=== PATIENT | female | born 1995 | race African-American/Black ===

== ENCOUNTER 2020-01-19 13:55 | Emergency (ER) | payer MEDICAID ==
[~2020-01-19] VITALS: Ht 177.8 cm; Wt 114.0 kg
[~2020-01-19 13:55] MED LIST: DOCO200C3; PREN1COM10 PO
--- NOTE | 2020-01-19 15:22 | NUR ---
crime scene technician: pt ambulatory to ED room 19 from lobby at this time.
--- NOTE | 2020-01-19 16:09 | NUR ---
THIS IS A 24 YO F W/ C/O INTERMITTENT EPIGASTRIC PAIN THAT STARTED SATURDAY AND VB THAT STARTED TODAY. PT REPORTS PASSING CLOTS. PT REPORTS SHE HAS A POSITIVE TEST THAT SHE TOOK SATURDAY. LMP 12/17/19. [id number]-A0. PT IS RESTING ON Om[facility] W/ CALL LIGHT IN REACH, CONNECTED TO MONITORING. RESP EVEN AND UNLABORED. NADN. AWAITING ED EVAL.
[2020-01-19] MEDS ORDERED: SODIUM CHLORIDE 0.9% 1,000ML IVBOLUS ONE (16:30)
[2020-01-19] MEDS ORDERED: ONDANSETRON 2MG/ML, 2ML IVPush ONE (16:30)
[2020-01-19] MEDS ORDERED: SODIUM CHLORIDE FLUSH 10ML SYR IVF ONE (16:30)
[2020-01-19 16:48] LABS: BASOPHILS # (AUTO) 0.06 x10^3/uL (0-0.1); BASOPHILS % (AUTO) 1 % (0-1); EOSINOPHILS # (AUTO) 0.48 x10^3/uL (0-0.4); EOSINOPHILS % (AUTO) 5 % (1-7); LYMPHOCYTES # (AUTO) 2.73 x10^3/uL (1-3.4); LYMPHOCYTES % (AUTO) 30 % (22-44); MD NO; MEAN CORPUSCULAR HEMOGLOBIN 31.7 pg (27.0-34.8); MEAN CORPUSCULAR HGB CONC 33.4 g/dL (32.4-35.8); MEAN CORPUSCULAR VOLUME 94.8 fL (80-100); MEAN PLATELET VOLUME 7.4 fL (7.4-10.4); MONOCYTES # (AUTO) 0.91 x10^3/uL (0.2-0.8); MONOCYTES % (AUTO) 10 % (2-9); NEUTROPHILS # (AUTO) 5.03 x10^3/uL (1.8-6.8); NEUTROPHILS % (AUTO) 55 % (42-75); PLATELET COUNT 308 x10^3/uL (130-400); RED CELL DISTRIBUTION WIDTH 12.6 % (9.6-15.2)
[2020-01-19 16:59] LABS: ALANINE AMINOTRANSFERASE 36 U/L (12-78); ALBUMIN 3.1 g/dL (3.4-5.0); ANION GAP 6 mmol/L (5-15); CALCIUM 8.6 mg/dL (8.5-10.1); CHLORIDE 108 mmol/L (98-107)
[2020-01-19 17:04] LABS: ALKALINE PHOSPHATASE 88 U/L (45-117); BILIRUBIN,TOTAL 0.3 mg/dL (0.2-1.0); CREATININE 0.79 mg/dL (0.55-1.02); TOTAL PROTEIN 7.1 g/dL (6.4-8.2)
--- NOTE | 2020-01-19 17:18 | NUR ---
PT IN RAD.
--- NOTE | 2020-01-19 17:39 | NUR ---
TASK RN: PT CURRENTLY IN US.
[2020-01-19] MEDS ORDERED: MORPHINE SULFATE 4 MG/ML, 1ML ONE ×2 (17:52→19:58)
[2020-01-19] MEDS ORDERED: ONDANSETRON 2MG/ML, 2ML ONE (17:52)
[2020-01-19] MEDS: MORPHINE SULFATE 4 MG/ML, 1ML IVPush PRN ×2 (17:57→19:59)
[2020-01-19 17:58] VITALS: BP 169/78
--- NOTE | 2020-01-19 17:58 | NUR ---
TASK RN: IV STARTED, FLUIDS RUNNING, PT MEDICATED FOR 09/06 PAIN. VSS. FAMILY AT BEDSIDE CALL LIGHT WITHIN REACH
--- NOTE | 2020-01-19 18:22 | NUR ---
ALL TESTS RESULTED. PT IS UP FOR RECHECK AT THIS TIME.
[2020-01-19] MEDS ORDERED: MAALOX/HYOSCYAMINE/LIDOCAINE 45 ML BTL PO ONE (19:00)
[2020-01-19] MEDS ORDERED: DIPHENHYDRAMINE 50 MG/ML, 1ML IVPush ONE (19:00)
[2020-01-19] MEDS ORDERED: FAMOTIDINE 20 MG/2 ML IVPush ONE (19:00)
[2020-01-19] MEDS ORDERED: METOCLOPRAMIDE 5 MG/ML, 2ML IVPush ONE (19:00)
[2020-01-19] MEDS ORDERED: FAMOTIDINE 20 MG/2 ML ONE (19:40)
[2020-01-19] MEDS ORDERED: METOCLOPRAMIDE 5 MG/ML, 2ML ONE (19:40)
[2020-01-19] MEDS ORDERED: MAALOX/HYOSCYAMINE/LIDOCAINE 45 ML BTL ONE (19:40)
[2020-01-19] MEDS ORDERED: DIPHENHYDRAMINE 50 MG/ML, 1ML ONE (19:57)
== END 2020-01-19 20:51 | disposition home or self-care (01) ==
LOC: ED 20:41
DX: O20.0 Threatened abortion (principal); O21.9 Vomiting of pregnancy, unspecified; R10.84 Generalized abdominal pain; R10.13 Epigastric pain
CPT/HCPCS: 36415; 76700; 76801; 80053; 83690; 84702; 85025; 96361; 96374; 96375; 96376; 99285; J1200; J2270; J2405; J2765; J3490; J7030

== ENCOUNTER 2020-07-24 15:12 | Emergency (ER) | payer MEDICAID ==
[~2020-07-24] VITALS: Ht 175.3 cm; Wt 106.4 kg
--- NOTE | 2020-07-24 15:28 | NUR ---
PATIENT WALKED BACK FROM TRIAGE WITH CHIEF C/O EMESIS. PATIENT STATES SHE STARTED THROWING UP SOME BLOOD TODAY, AND LOST VISION IN HER LEFT EYE, WAS DIZZY, AND FELT LIKE SHE WAS ABOUT TO PASS OUT. PATIENT REPORTS HER VISION HAS COME BACK SOMEWHAT AND SHE IS GETTING A HERNANDEZ. PATIENT HAS CRAMPING ON THE RIGHT SIDE OF HER ABDOMEN. DENIES VAGINAL BLEEDING. PATIENT IS 9 WEEKS . ACCOMPANIED BY SIGNIFICANT OTHER, CONNECTED TO VITALS MACHINE. PROVIDER AT BEDSIDE FOR EVALUATION.
[2020-07-24] MEDS ORDERED: ONDANSETRON 2MG/ML, 2ML ONE (15:57)
[2020-07-24] MEDS ORDERED: SODIUM CHLORIDE FLUSH 10ML SYR IVF ONE (16:00)
[2020-07-24] MEDS ORDERED: SODIUM CHLORIDE 0.9% 1,000ML IVBOLUS ONE (16:00)
[2020-07-24] MEDS ORDERED: ONDANSETRON 2MG/ML, 2ML IVPush ONE (16:00)
--- NOTE | 2020-07-24 16:09 | NUR ---
20 GAUGE IV STARTED LEFT AC, ZOFRAN GIVEN, NS BOLUS STARTED, CONNECTED TO ELECTROCARDIOGRAPH TECHNICIAN, CALL LIGHT WITHIN REACH.
--- NOTE | 2020-07-24 16:22 | NUR ---
URINE COLLECTED AND SENT TO LAB.
--- NOTE | 2020-07-24 16:26 | NUR ---
PATIENT TO ULTRASOUND.
[2020-07-24 16:28] LABS: ALBUMIN 3.5 g/dL (3.4-5.0); ANION GAP 7 mmol/L (5-15); CALCIUM 9.1 mg/dL (8.5-10.1); CHLORIDE 105 mmol/L (98-107)
[2020-07-24 16:37] LABS: MICROSCOPIC AUTO
[2020-07-24 16:40] LABS: BASOPHILS # (AUTO) 0.05 x10^3/uL (0-0.1); BASOPHILS % (AUTO) 0 % (0-1); EOSINOPHILS # (AUTO) 0.24 x10^3/uL (0-0.4); EOSINOPHILS % (AUTO) 2 % (1-7); LYMPHOCYTES # (AUTO) 2.16 x10^3/uL (1-3.4); LYMPHOCYTES % (AUTO) 18 % (22-44); MD NO; MEAN CORPUSCULAR HEMOGLOBIN 31.9 pg (27.0-34.8); MEAN CORPUSCULAR HGB CONC 33.7 g/dL (32.4-35.8); MEAN PLATELET VOLUME 8.4 fL (7.4-10.4); MONOCYTES # (AUTO) 0.82 x10^3/uL (0.2-0.8); MONOCYTES % (AUTO) 7 % (2-9); NEUTROPHILS # (AUTO) 8.76 x10^3/uL (1.8-6.8); NEUTROPHILS % (AUTO) 73 % (42-75); PLATELET COUNT 343 x10^3/uL (130-400); RED BLOOD COUNT 4.54 x10^6/uL (3.82-5.3); RED CELL DISTRIBUTION WIDTH 12.2 % (9.6-15.2)
[2020-07-24 16:47] LABS: ALANINE AMINOTRANSFERASE 23 U/L (12-78); ALKALINE PHOSPHATASE 81 U/L (45-117); BILIRUBIN,TOTAL 0.9 mg/dL (0.2-1.0); TOTAL PROTEIN 8.1 g/dL (6.4-8.2)
--- NOTE | 2020-07-24 17:07 | NUR ---
Armond frazier in [facility] - 07/24/20 at 1708 by [email or web address] PATIENT RESTING IN [facility], CONNECTED TO AUTO CLAIMS ADJUSTER. PATIENT STATES SHE IS STILL FEELING PRETTY NAUSEATED. PROVIDER NOTIFIED.
--- NOTE | 2020-07-24 17:08 | NUR ---
PATIENT RESTING IN GURNEY, CONNECTED TO MAT GAUGER. PATIENT STATES SHE IS STILL FEELING NAUSEATED. PROVIDER NOTIFIED.
[2020-07-24] MEDS ORDERED: PROMETHAZINE 25 MG/ML, 1ML ONE (17:21)
--- NOTE | 2020-07-24 17:25 | NUR ---
MEDICATED FOR NAUSEA
[2020-07-24] MEDS ORDERED: PROMETHAZINE 25 MG/ML, 1ML IM ONE (17:30)
--- NOTE | 2020-07-24 18:10 | NUR ---
ER PROVIDER AT BEDSIDE TO DISCUSS POC.
[2020-07-24] MEDS ORDERED: CEFDINIR 300 MG CAPSULE ONE (18:19)
[2020-07-24 18:22] VITALS: BP 149/98
--- NOTE | 2020-07-24 18:23 | NUR ---
DISCHARGE INSTRUCTIONS REVIEWED
[2020-07-24] MEDS ORDERED: CEFDINIR 300 MG CAPSULE PO ONE (18:30)
--- NOTE | 2020-07-24 18:30 | NUR ---
Patient and significant other given discharge instructions and prescription and they have confirmed that they understand the instructions, all questions answered. All patient belongings gathered by patient and significant other. Patient ambulatory with steady gait to discharge desk.
== END 2020-07-24 18:31 | disposition home or self-care (01) ==
LOC: ED 16:51
DX: O23.41 Unspecified infection of urinary tract in pregnancy, first trimester (principal); R11.2 Nausea with vomiting, unspecified; M54.9 Dorsalgia, unspecified; Z3A.09 9 weeks gestation of pregnancy
CPT/HCPCS: 36415; 76801; 80053; 81001; 84702; 85025; 87086; 93005; 96361; 96372; 96374; 99285; J2405; J2550; J7030

== ENCOUNTER 2020-07-25 10:24 | Emergency (ER) | payer MEDICAID ==
[~2020-07-25] VITALS: Ht 175.3 cm; Wt 106.7 kg
--- NOTE | 2020-07-25 10:44 | NUR ---
DX WITH UTI YESTERDAY. DID NOT FILL ABX YESTERDAY AFTER D/C NOTICED VAGINAL BLEEDING/ABD CRAMPING WELL HEADACHE THIS AM VSS UP TO RESTROOM TO VOID
[2020-07-25] MEDS ORDERED: ONDANSETRON 2MG/ML, 2ML IVPush ONE (11:00)
[2020-07-25] MEDS ORDERED: ONDANSETRON 2MG/ML, 2ML ONE (11:13)
[2020-07-25 11:29] LABS: BASOPHILS # (AUTO) 0.03 x10^3/uL (0-0.1); BASOPHILS % (AUTO) 0 % (0-1); EOSINOPHILS # (AUTO) 0.27 x10^3/uL (0-0.4); EOSINOPHILS % (AUTO) 2 % (1-7); LYMPHOCYTES # (AUTO) 2.43 x10^3/uL (1-3.4); LYMPHOCYTES % (AUTO) 21 % (22-44); MD NO; MEAN CORPUSCULAR HEMOGLOBIN 31.5 pg (27.0-34.8); MEAN CORPUSCULAR HGB CONC 33.2 g/dL (32.4-35.8); MONOCYTES # (AUTO) 0.77 x10^3/uL (0.2-0.8); MONOCYTES % (AUTO) 7 % (2-9); NEUTROPHILS # (AUTO) 8.05 x10^3/uL (1.8-6.8); NEUTROPHILS % (AUTO) 70 % (42-75); PLATELET COUNT 326 x10^3/uL (130-400); RED BLOOD COUNT 4.53 x10^6/uL (3.82-5.3); RED CELL DISTRIBUTION WIDTH 12.2 % (9.6-15.2)
--- NOTE | 2020-07-25 11:58 | NUR ---
RETURNED FROM MRI. NAUSEA TOTALLY RESOLVED NOW WITH HEADACHE AND ASKING FOR WATER- TO NOTIFY PROVIDER
[2020-07-25 12:09] VITALS: BP 142/81
[2020-07-25] MEDS ORDERED: ACETAMINOPHEN 500 MG TABLET PO ONE (12:30)
[2020-07-25] MEDS ORDERED: ACETAMINOPHEN 500 MG TABLET ONE ×2 (12:38→12:42)
--- NOTE | 2020-07-25 12:59 | NUR ---
Discharged home after thorough review of plan ans well as sxs to watch for requiring return to care
== END 2020-07-25 13:00 | disposition home or self-care (01) ==
LOC: ED 11:07
DX: O23.11 Infections of bladder in pregnancy, first trimester (principal); O46.91 Antepartum hemorrhage, unspecified, first trimester; Z3A.09 9 weeks gestation of pregnancy
CPT/HCPCS: 36415; 74181; 85025; 96374; 99284; J2405

== ENCOUNTER 2020-08-12 22:35 | Emergency (ER) | payer MEDICAID ==
[~2020-08-12] VITALS: Ht 177.8 cm; Wt 105.2 kg
[2020-08-12] MEDS ORDERED: [UNRECOGNIZED DRUG - OTHER] PO (22:52)
[2020-08-12] MEDS ORDERED: TRIM300C20 PO (22:52)
[2020-08-12] MEDS ORDERED: [UNRECOGNIZED DRUG - OTHER] RC (22:53)
[2020-08-12] MEDS ORDERED: SODIUM CHLORIDE 0.9% 1,000ML IVBOLUS ONE (23:00)
[2020-08-12] MEDS ORDERED: ONDANSETRON 2MG/ML, 2ML IVPush ONE (23:00)
[2020-08-12] MEDS ORDERED: SODIUM CHLORIDE FLUSH 10ML SYR IVF ONE (23:00)
--- NOTE | 2020-08-12 23:02 | NUR ---
PT CAME INTO ED TONIGHT DUE TO N/V SINCE SART OF , PT 12 WEEKS ALONG, AT BS, PT G4,P2,A1. PT STATES NO OTHER PREGNANCIES HAVE MADE HER SICK LIKE THIS. STATES ZOFRAN AND NO OTHER NAUSEA MEDS HAVE HELPED. PT REPORTS STRUGGLING TO HOLD DOWN FLUIDS AND VOMITS IMMEDIATELY AFTER EATING. PT REPORTS URINE SMELLING ABNORMAL RECENTLY, DENIES PAIN WITH URINATION. ANOx4, NOT CURRENTLY VOMITTING, HELEN NEURO INTACT BUT STATES SHES SLIGHTLY LIGHT HEADED FROM NOT KEEPING DOWN FLUIDS. PT PLACED ON SPO2/BP MONITORING. WARM BLANKET PROVIDED FOR COMFORT. WCELIZ. LAUREL CUNHA AT BS FOR EVAL OR POC.
[2020-08-12 23:12] LABS: BASOPHILS % (AUTO) 1 % (0-1); EOSINOPHILS % (AUTO) 0 % (1-7); LYMPHOCYTES % (AUTO) 12 % (22-44); MEAN CORPUSCULAR HEMOGLOBIN 31.7 pg (27.0-34.8); MEAN CORPUSCULAR HGB CONC 33.6 g/dL (32.4-35.8); MEAN PLATELET VOLUME 7.6 fL (7.4-10.4); MONOCYTES % (AUTO) 6 % (2-9); NEUTROPHILS % (AUTO) 81 % (42-75); PLATELET COUNT 354 x10^3/uL (130-400); RED BLOOD COUNT 4.34 x10^6/uL (3.82-5.3); RED CELL DISTRIBUTION WIDTH 12.6 % (9.6-15.2)
[2020-08-12 23:19] LABS: ALANINE AMINOTRANSFERASE 24 U/L (12-78); ALBUMIN 3.2 g/dL (3.4-5.0); ANION GAP 9 mmol/L (5-15); CALCIUM 9.5 mg/dL (8.5-10.1); CHLORIDE 105 mmol/L (98-107); CREATININE 0.69 mg/dL (0.55-1.02)
[2020-08-12 23:21] LABS: ALKALINE PHOSPHATASE 69 U/L (45-117); BILIRUBIN,TOTAL 0.7 mg/dL (0.2-1.0)
[2020-08-12] MEDS ORDERED: ONDANSETRON 2MG/ML, 2ML ONE (23:33)
[2020-08-12 23:35] VITALS: BP 129/61
[2020-08-13 00:16] LABS: MICROSCOPIC INDICATED
[2020-08-13 00:23] LABS: MD SCAN
[2020-08-13] MEDS ORDERED: SODIUM CHLORIDE 0.9% 1,000ML IVBOLUS ONE (00:30)
[2020-08-13] MEDS ORDERED: PROMETHAZINE 25 MG/ML, 1ML IM STA (00:39)
[2020-08-13] MEDS ORDERED: PROMETHAZINE 25 MG/ML, 1ML ONE (00:51)
--- NOTE | 2020-08-13 01:17 | NUR ---
AT BEDSIDE FOR RECHECK AND DISCUSS POC
--- NOTE | 2020-08-13 01:53 | NUR ---
Patient given discharge instructions and they have confirmed that they understand the instructions. Patient ambulatory with steady gait. NAD, DENIES ADDITIONAL QUESTIONS OR NEEDS AT THIS TIME, NO BELONGINGS LEFT IN ROOM AFTER DC.
== END 2020-08-13 01:54 | disposition home or self-care (01) ==
LOC: ED 23:30
DX: O21.0 Mild hyperemesis gravidarum (principal); R19.7 Diarrhea, unspecified; Z3A.12 12 weeks gestation of pregnancy
CPT/HCPCS: 36415; 80053; 81001; 83690; 85025; 87086; 96361; 96372; 96374; 99284; J2405; J2550; J7030

== ENCOUNTER → 2020-08-15 | Outpatient (CLI) | payer MEDICAID ==
[~2020-08-15] MED LIST changes: +TRIM300C20 PO; +[UNRECOGNIZED DRUG - OTHER] PO; +[UNRECOGNIZED DRUG - OTHER] RC
== END | disposition home or self-care (01) ==
LOC: RAD 12:44
PROVIDERS: ATTEND Obstetrics & Gynecology
DX: K65.1 Peritoneal abscess (principal)
CPT/HCPCS: 76705

== ENCOUNTER 2020-10-09 00:49 | Emergency (ER) | payer MEDICAID ==
[~2020-10-09] VITALS: Ht 175.3 cm; Wt 102.6 kg
--- NOTE | 2020-10-09 02:54 | NUR ---
TASK RN: PT. TO ROOM FROM LOBBY; PT. TO BR FOR URINE SAMPLE UPON WALKING BACK TO ROOM.
--- NOTE | 2020-10-09 03:10 | NUR ---
pt came into ed tonight due to having a multitude of respiratory symptoms, pt is 18wks , a1. pt states she is coughing a lot, and cant sleep due to chocking on mucus. pt reports ongoing migraine, sore throat, and cp. pt resting on gurney, nad, denies additional needs at this time, swabbed for covid, swab walked to lab, ua walked to lab, provided warm blanket for comfort, bed in lowest, call light on lap. deacon hong at bs for eval and poc. wctm. pt placed on spo2/bp/ecg monitoring at this time.
[2020-10-09 03:39] LABS: BASOPHILS % (AUTO) 0 % (0-1); EOSINOPHILS % (AUTO) 4 % (1-7); LYMPHOCYTES % (AUTO) 11 % (22-44); MEAN CORPUSCULAR HEMOGLOBIN 32.4 pg (27.0-34.8); MEAN CORPUSCULAR HGB CONC 34.1 g/dL (32.4-35.8); MEAN PLATELET VOLUME 7.9 fL (7.4-10.4); MONOCYTES % (AUTO) 7 % (2-9); NEUTROPHILS % (AUTO) 78 % (42-75); PLATELET COUNT 296 x10^3/uL (130-400); RED BLOOD COUNT 4.01 x10^6/uL (3.82-5.3); RED CELL DISTRIBUTION WIDTH 12.8 % (9.6-15.2)
[2020-10-09 03:48] LABS: ALANINE AMINOTRANSFERASE 19 U/L (12-78); ALBUMIN 2.9 g/dL (3.4-5.0); ANION GAP 8 mmol/L (5-15); CALCIUM 8.8 mg/dL (8.5-10.1); CHLORIDE 107 mmol/L (98-107); CREATININE 0.62 mg/dL (0.55-1.02)
[2020-10-09 03:52] LABS: ALKALINE PHOSPHATASE 78 U/L (45-117); BILIRUBIN,TOTAL 0.5 mg/dL (0.2-1.0); TOTAL PROTEIN 7.3 g/dL (6.4-8.2); TROPONIN I < 0.015 ng/mL (0.000-0.045)
[2020-10-09 04:03] LABS: MD NO
[2020-10-09 04:46] VITALS: BP 154/84
--- NOTE | 2020-10-09 04:47 | NUR ---
Patient given discharge instructions and they have confirmed that they understand the instructions. Patient ambulatory with steady gait. nad, denies additional questions or needs, provided taxi voucher for dc. no personal belongings left in room after dc.
== END 2020-10-09 04:49 | disposition home or self-care (01) ==
LOC: ED 02:52
DX: O26.892 Other specified pregnancy related conditions, second trimester (principal); Z20.828 Contact with and (suspected) exposure to other viral communicable diseases; M79.10 Myalgia, unspecified site; R07.89 Other chest pain; Z3A.18 18 weeks gestation of pregnancy
CPT/HCPCS: 36415; 71045; 80053; 84484; 85025; 87635; 99284

== ENCOUNTER 2020-10-09 13:00 | Emergency (ER) | payer MEDICAID ==
[~2020-10-09] VITALS: Ht 175.3 cm; Wt 101.8 kg
[2020-10-09 13:28] VITALS: BP 127/89
--- NOTE | 2020-10-09 14:37 | NUR ---
Patient given discharge instructions and Rx, they have confirmed that they understand the instructions. Patient ambulatory with steady gait.
== END 2020-10-09 14:42 | disposition home or self-care (01) ==
LOC: ED 14:15
DX: O99.612 Diseases of the digestive system complicating pregnancy, second trimester (principal); K22.6 Gastro-esophageal laceration-hemorrhage syndrome; H11.31 Conjunctival hemorrhage, right eye; R11.2 Nausea with vomiting, unspecified; Z3A.18 18 weeks gestation of pregnancy
CPT/HCPCS: 93005; 99283

== ENCOUNTER 2020-12-06 18:29 | Outpatient (CLI) | payer MEDICAID ==
[~2020-12-06] VITALS: Ht 175.3 cm; Wt 100.0 kg
[2020-12-06 19:06] VITALS: BP 130/90
[2020-12-06 19:20] LABS: BASOPHILS % (AUTO) 0 % (0-1); EOSINOPHILS % (AUTO) 2 % (1-7); LYMPHOCYTES % (AUTO) 18 % (22-44); MEAN CORPUSCULAR HEMOGLOBIN 31.6 pg (27.0-34.8); MEAN CORPUSCULAR HGB CONC 33.4 g/dL (32.4-35.8); MEAN PLATELET VOLUME 7.9 fL (7.4-10.4); MONOCYTES % (AUTO) 8 % (2-9); NEUTROPHILS % (AUTO) 71 % (42-75); PLATELET COUNT 284 x10^3/uL (130-400); RED BLOOD COUNT 3.85 x10^6/uL (3.82-5.3); RED CELL DISTRIBUTION WIDTH 12.9 % (9.6-15.2)
[2020-12-06 19:21] LABS: MD NO
[2020-12-06 19:32] LABS: ALANINE AMINOTRANSFERASE 17 U/L (12-78); ALBUMIN 2.7 g/dL (3.4-5.0); ANION GAP 9 mmol/L (5-15); CALCIUM 8.8 mg/dL (8.5-10.1); CHLORIDE 107 mmol/L (98-107); CREATININE 0.51 mg/dL (0.55-1.02)
[2020-12-06 19:33] LABS: ALKALINE PHOSPHATASE 80 U/L (45-117); BILIRUBIN,TOTAL 0.5 mg/dL (0.2-1.0); TOTAL PROTEIN 6.7 g/dL (6.4-8.2)
[2020-12-06 19:58] LABS: AMPHETAMINE SCREEN, URINE Negative (Negative); BARBITURATE SCREEN, URINE Negative (Negative); BENZODIAZEPINE SCREEN, URINE Negative (Negative); CANNABINOID SCREEN, URINE Positive (Negative); COCAINE SCREEN, URINE Negative (Negative); METHADONE SCREEN, URINE Negative (Negative); OPIATE SCREEN, URINE Negative (Negative)
[2020-12-06 20:07] LABS: MICROSCOPIC INDICATED
[2020-12-06] MEDS ORDERED: ACETAMINOPHEN 325 MG TABLET ONE (21:10)
[2020-12-06] MEDS ORDERED: ACETAMINOPHEN 325 MG TABLET PO PRN (21:30)
== END 2020-12-06 21:50 | disposition home or self-care (01) ==
LOC: LDOP 18:29
PROVIDERS: ATTEND Obstetrics & Gynecology
DX: O26.893 Other specified pregnancy related conditions, third trimester (principal); R10.9 Unspecified abdominal pain; Z3A.28 28 weeks gestation of pregnancy
CPT/HCPCS: 36415; 80053; 80307; 81001; 82150; 83690; 85025; 87086; 99211; G0463